=== PATIENT | male | born 2000 | race Caucasian/White ===

== ENCOUNTER → 2020-09-01 09:49 | Outpatient (CLI) | payer OTHER, SELFPAY ==
[2020-09-01] MEDS: COVID-19 VACC #1, MRNA(MOD) 100 MCG/0.5 ML VIAL IM (09:55)
== END ==
PROVIDERS: Visit Provider Internal Medicine
DX: Z23 Encounter for immunization (principal)
CPT/HCPCS: 0011A; 91301

== ENCOUNTER → 2020-09-30 09:31 | Outpatient (CLI) | payer OTHER, SELFPAY ==
[2020-09-30] MEDS: COVID-19 VACC #2, MRNA(MOD) 100 MCG/0.5 ML VIAL IM (09:38)
== END ==
PROVIDERS: Visit Provider Internal Medicine
DX: Z23 Encounter for immunization (principal)
CPT/HCPCS: 0012A; 91301